=== PATIENT | male | born 1995 | race Native Hawaiian/Other Pacific Islander ===

== ENCOUNTER 2017-10-27 21:31 | Emergency (ER) | payer OTHER ==
[2017-10-27 22:24] VITALS: BP 156/85; PULSE 62; RESP 16; TEMP 87.7; O2SAT 100
[2017-10-27 22:35] VITALS: BP_SYST 134; BP_SYST 140; BP_SYST 144; BP_DIAS 79; BP_DIAS 84; BP_DIAS 90; RESP 16; RESP 18
[2017-10-27] MEDS ORDERED: SODIUM CHLOR 0.9% 1000 ML INJ 1,000 ML IV SCH (22:35)
--- NOTE | 2017-10-27 22:42 | PD ---
HPI Chief Complaint: GI Complaint Time Seen by Provider: 22:35 Travel History International Travel<30 days: No Contact w/Intl Traveler<30days: No Traveled to known affect area: No History of Present Illness HPI 21-year-old male presents to the emergency department by private transportation for complaint of vomiting blood 2 prior to arrival to the emergency department. Patient denies prior history of vomiting blood. Patient denies NSAID use. Patient is prescribed Vyvanse but states he does not take this medication. Patient did take someone else's Adderall reportedly last evening. Patient admits to drinking alcohol last evening. Patient does admit to tobacco use. Patient complains of some epigastric discomfort. No report of black or tarry stools. Patient states still has been watery. Patient rates discomfort 5 /10. Patient estimates total amount of emesis possibly 1 cup of mixed gastric contents and red blood. PFSH Past Medical History Narrative Medical adhd; tobacco use, alcohol use; nursing notes reviewed Social History Alcohol Use: Yes Tobacco Use: No Allergies-Medications (Allergen,Severity, Reaction): Coded Allergies: No Known Allergies (Unverified , 10/27/17) Reported Meds & Prescriptions Reported Meds & Active Scripts Active Zofran Odt (Ondansetron Odt) 4 Mg Tab 4 Mg SL Q6HR PRN Carafate Liq (Sucralfate) 1 Gm/10 Ml Susp 1 Gm PO QID 7 Days on empty stomach Narrative Medication VyVanse Review of Systems Except as stated in HPI: all other systems reviewed are Neg General / Constitutional: No: Fever, Chills HENT: No: Congestion Cardiovascular: No: Chest Pain or Discomfort Respiratory: No: Shortness of Breath Gastrointestinal: Positive: Nausea, Vomiting, Abdominal Pain, Hematemesis Genitourinary: No: Flank Pain Musculoskeletal: No: Myalgias, Arthralgias Skin: No Rash Neurologic: No: Weakness, Dizziness Hematologic/Lymphatic: No: Lymph Node Enlargement Physical Exam Narrative GENERAL: SKIN: Warm and dry. HEAD: Normocephalic. EYES: No scleral icterus. No injection or drainage. NECK: Supple, trachea midline. No JVD or lymphadenopathy. CARDIOVASCULAR: Regular rate and rhythm without murmurs, gallops, or rubs. RESPIRATORY: Breath sounds equal bilaterally. No accessory muscle use. GASTROINTESTINAL: Abdomen soft, non-tender, nondistended. MUSCULOSKELETAL: No cyanosis, or edema. BACK: Nontender without obvious deformity. No CVA tenderness. Data Data Last Documented VS Vital Signs Date Time Temp Pulse Resp B/P (MAP) Pulse Ox O2 Delivery O2 Flow Rate FiO2 10/28/17 01:09 10/28/17 00:20 79 16 100 Room Air 10/27/17 22:24 87.7 Orders Orders Complete Blood Count With Diff (10/27/17 22:35) Comprehensive Metabolic Panel (10/27/17 22:35) Lipase (10/27/17 22:35) Prothrombin Time / Inr (Pt) (10/27/17 22:35) Act Partial Throm Time (Ptt) (10/27/17 22:35) Urinalysis - C+S If Indicated (10/27/17 22:35) Iv Access Insert/Monitor (10/27/17 22:35) Oximetry (10/27/17 22:35) Ondansetron Inj (Zofran Inj) (10/27/17 22:45) Pantoprazole Inj (Protonix Inj) (10/27/17 22:45) Sodium Chlor 0.9% 1000 Ml Inj (Ns 1000 M (10/27/17 22:35) Sodium Chloride 0.9% Flush (Ns Flush) (10/27/17 22:45) Chest, Single Ap (10/27/17 22:35) Orthostatic Vital Signs (10/27/17 22:35) Ed Discharge Order (10/28/17 00:53) Labs Laboratory Tests Test 10/27/17 22:35 10/28/17 00:20 White Blood Count 9.5 TH/MM3 Red Blood Count 5.13 MIL/MM3 Hemoglobin 15.4 GM/DL Hematocrit 44.8 % Mean Corpuscular Volume 87.3 FL Mean Corpuscular Hemoglobin 29.9 PG Mean Corpuscular Hemoglobin Concent 34.3 % Red Cell Distribution Width 13.5 % Platelet Count 217 TH/MM3 Mean Platelet Volume 8.7 FL Neutrophils (%) (Auto) 67.5 % Lymphocytes (%) (Auto) 24.9 % Monocytes (%) (Auto) 5.9 % Eosinophils (%) (Auto) 0.8 % Basophils (%) (Auto) 0.9 % Neutrophils # (Auto) 6.4 TH/MM3 Lymphocytes # (Auto) 2.4 TH/MM3 Monocytes # (Auto) 0.6 TH/MM3 Eosinophils # (Auto) 0.1 TH/MM3 Basophils # (Auto) 0.1 TH/MM3 CBC Comment DIFF FINAL Differential Comment Urine Color YELLOW Urine Turbidity CLEAR Urine pH 8.5 Urine Specific [place] 1.022 Urine Protein 30 mg/dL Urine Glucose (UA) NEG mg/dL Urine Ketones NEG mg/dL Urine Occult Blood NEG Urine Nitrite NEG Urine Bilirubin NEG Urine Urobilinogen LESS THAN 2.0 MG/DL Urine Leukocyte Esterase NEG Urine RBC 1 /hpf Urine WBC LESS THAN 1 /hpf Microscopic Urinalysis Comment CULT NOT INDICATED Blood Urea Nitrogen 11 MG/DL Creatinine 1.04 MG/DL Random Glucose 101 MG/DL Total Protein 8.1 GM/DL Albumin 4.4 GM/DL Calcium Level 9.5 MG/DL Alkaline Phosphatase 95 U/L Aspartate Amino Transf (AST/SGOT) 37 U/L Alanine Aminotransferase (ALT/SGPT) 35 U/L Total Bilirubin 0.5 MG/DL Sodium Level 138 MEQ/L Potassium Level 3.6 MEQ/L Chloride Level 100 MEQ/L Carbon Dioxide Level 29.4 MEQ/L Anion Gap 9 MEQ/L Estimat Glomerular Filtration Rate 90 ML/MIN Lipase 86 U/L Prothrombin Time 11.4 SEC Prothromb Time International Ratio 1.1 RATIO Activated Partial Thromboplast Time 26.2 SEC MDM Medical Decision Making Medical Screen Exam Complete: Yes Emergency Medical Condition: Yes Medical Record Reviewed: Yes Interpretation(s) Last Impressions Chest X-Ray 10/27/175 Signed Impressions: Service Date/Time: October 22:45 - CONCLUSION: The lungs are clear. Ck Peace MD CBC & BMP Diagram 10/27/17 22:35 Total Protein 8.1, Albumin 4.4, Calcium Level 9.5, Alkaline Phosphatase 95, Aspartate Amino Transf (AST/SGOT) 37, Alanine Aminotransferase (ALT/SGPT) 35, Total Bilirubin 0.5 Vital Signs Date Time Temp Pulse Resp B/P (MAP) Pulse Ox O2 Delivery O2 Flow Rate FiO2 10/28/17 00:20 79 16 130/73 (92) 100 Room Air 10/27/17 22:35 79 16 134/79 (97) 65 16 140/90 (107) 63 18 144/84 (104) 10/27/17 22:24 87.7 62 16 156/85 (108) 100 Differential Diagnosis Alcohol gastritis, peptic ulcer disease, esophagitis, upper GI bleed, unlikely Staci-Sun tear or Boerhaave's Narrative Course IV access obtained specimens collected and sent for resulting; patient administered 1 L normal saline and Zofran 4 mg IV along with Protonix 40 mg IV 1 dose Patient resting comfortably no significant variance on orthostatic blood pressure and heart rate Rectal exam normal sphincter tone brown stool Hemoccult negative Lab values are found to be grossly in normal range patient is stable for outpatient management encouraged to not use NSAIDs or alcohol given prescription for Carafate as needed Zofran and recommend [id number] Zantac use for the next 7 days; patient is encouraged to follow-up with his primary care provider and certified wellness program manager as needed. Diagnosis Primary Impression: Gastritis Referrals: Instrument Sterilizer as needed Primary Care Physician call for appointment Patient Instructions: General Instructions Additional Instructions: Follow clear liquid diet for next 12-24 hours advance as tolerated to bland/ brat diet and regular diet avoiding fried and fatty foods Do not take nonsteroidal anti-inflammatory medications such as ibuprofen/Motrin/ Advil/Aleve/naproxen/Naprosyn or aspirin 7 days Take [id number] Zantac 150 twice daily for 7 days Take prescription Carafate as prescribed May use prescription Zofran as prescribed as needed for nausea and/or vomiting Increase fluid hydration while avoiding alcoholic beverages May take as tolerated acetaminophen/Tylenol as needed for fever 100.4F or greater for minor pain Return to the emergency department for pain fever vomiting or any concerns Do not drink alcoholic beverages Med/Other Pt SpecificInfo: Prescription(s) given Scripts Ondansetron Odt (Zofran Odt) 4 Mg Tab 4 MG SL Q6HR Y for Nausea/Vomiting, #10 TAB 0 Refills Prov: Rozina Stokes MD 10/28/17 Sucralfate Liq (Carafate Liq) 1 Gm/10 Ml Susp 1 GM PO QID for Duodenal ulcer for 7 Days, ML 0 Refills on empty stomach Prov: Rozina Stokes MD 10/28/17 Disposition: 01 DISCHARGE HOME Condition: Stable Rozina Stokes MD Oct 27, 2017 22:42
[2017-10-27] MEDS ORDERED: PANTOPRAZOLE SODIUM 40 MG VIAL IVP ONE (22:45)
[2017-10-27] MEDS ORDERED: SODIUM CHLORIDE 0.9% FLUSH 10 ML FLUSH IV FLUSH PRN (22:45)
[2017-10-27] MEDS ORDERED: ONDANSETRON HCL 4 MG/2 ML VIAL IVP ONE (22:45)
--- NOTE | 2017-10-27 22:57 | RADRPT ---
EXAM DATE/TIME: 10/27/2017 22:45 [facility] COMPARISON: No previous studies available for comparison. INDICATIONS : Vomiting blood and shortness of breath. MEDICAL HISTORY : None. SURGICAL HISTORY : None. ENCOUNTER: Initial ACUITY: 1 day PAIN SCORE: 0/10 LOCATION: Bilateral chest FINDINGS: A single view of the chest demonstrates the lungs to be symmetrically aerated without evidence of mas s, infiltrate or effusion. The cardiomediastinal contours are unremarkable. Osseous structures are intact. CONCLUSION: The lungs are clear. Ck Peace MD on October 27, 2017 at 22:55 Board Certified Radiologist. This report was verified electronically.
[2017-10-27 23:06] LABS: AUTOMATED NEUTROPHIL # 6.4 TH/MM3 (1.8-7.7); BASOPHIL # 0.1 TH/MM3 (0-0.2); BASOPHIL % 0.9 % (0.0-2.0); EOSINOPHIL # 0.1 TH/MM3 (0-0.4); EOSINOPHIL % 0.8 % (0.0-4.0); HEMATOCRIT 44.8 % (39.0-51.0); HEMOGLOBIN 15.4 GM/DL (13.0-17.0); LYMPH % 24.9 % (9.0-44.0); LYMPHOCYTE # 2.4 TH/MM3 (1.0-4.8); MEAN CELL VOLUME 87.3 FL (80.0-100.0); MEAN CORPUSCULAR HEMOGLOBIN 29.9 PG (27.0-34.0); MEAN CORPUSCULAR HGB CONC 34.3 % (32.0-36.0); MEAN PLATELET VOLUME 8.7 FL (7.0-11.0); MONO % 5.9 % (0.0-8.0); MONOCYTE # 0.6 TH/MM3 (0-0.9); NEUT % 67.5 % (16.0-70.0); PLATELET COUNT 217 TH/MM3 (150-450); RED BLOOD COUNT 5.13 MIL/MM3 (4.50-5.90); RED CELL DISTRIBUTION WIDTH 13.5 % (11.6-17.2); WHITE BLOOD COUNT 9.5 TH/MM3 (4.0-11.0)
[2017-10-27 23:07] LABS: BILIRUBIN, URINE NEG (NEG); BLOOD, URINE NEG (NEG); GLUCOSE,URINE NEG (NEG); KETONE, URINE NEG (NEG); NITRITE,URINE NEG (NEG); PH, URINE 8.5 (5.0-8.5); URINE COLOR YELLOW (YELLW/STRAW); URINE LEUKOCYTE ESTERASE NEG (NEG)
[2017-10-27 23:36] LABS: ALBUMIN 4.4 GM/DL (3.4-5.0); AST (GOT) 37 U/L (15-37); BICARBONATE 29.4 MEQ/L (21.0-32.0); BLOOD UREA NITROGEN 11 MG/DL (7-18); CALCIUM 9.5 MG/DL (8.5-10.1); CHLORIDE 100 MEQ/L (98-107); CREATININE 1.04 MG/DL (0.60-1.30); GLOMERULAR FILTRATION RATE 90 ML/MIN (>89); GLUCOSE,RANDOM 101 MG/DL (74-106); SODIUM (NA) 138 MEQ/L (136-145)
[2017-10-27 23:37] LABS: ALT (GPT) 35 U/L (12-78)
[2017-10-27 23:40] LABS: ALKALINE PHOSPHATASE 95 U/L (45-117); TOTAL BILIRUBIN ADULT 0.5 MG/DL (0.2-1.0); TOTAL PROTEIN 8.1 GM/DL (6.4-8.2)
[2017-10-28 00:20] VITALS: BP 130/73; PULSE 79; RESP 16; O2SAT 100
[2017-10-28] MEDS ORDERED: CARA1SUS3 PO (00:55)
[2017-10-28] MEDS ORDERED: ZOFR4TAB3 SL (00:55)
[2017-10-28 01:02] LABS: INTERNATIONAL NORMALIZED RATIO 1.1 RATIO; PROTHROMBIN TIME - PATIENT 11.4 SEC (9.8-11.6)
== END 2017-10-28 01:18 | disposition home or self-care (01) ==
LOC: NEPC 21:31
DX: K29.70 Gastritis, unspecified, without bleeding (principal); F90.9 Attention-deficit hyperactivity disorder, unspecified type; Z72.0 Tobacco use
CPT/HCPCS: 71045; 80053; 81001; 83690; 85025; 85610; 85730; 96374; 96375; 99284; C9113; J2405; J7030